=== PATIENT | male | born 1945 | race Caucasian/White ===

== ENCOUNTER 2016-10-14 10:21 | Inpatient (IN) | payer MEDICARE, OTHER ==
[2016-10-14 11:05] LABS: BASOPHIL 0.8 % (0-2); EOSINOPHIL 0.1 % (0-7); HCT 40.4 % (42.0-52.0); HGB 13.3 g/dl (13.2-18.0); MCH 30.2 pg (25.0-31.0); MCHC 32.9 g/dL (32.0-36.0); MCV 91.8 fL (78.0-100.0); MONOCYTE 7.3 % (0-12); MPV 9.2 fL (6.0-9.5); NEUTROPHIL 87.8 % (41-80); PLT 407 K/uL (150-400); RDW 12.7 % (11.5-14.0)
[2016-10-14 11:10] LABS: WBC 17.3 K/uL (4.0-10.5)
[2016-10-14 11:15] LABS: ALBUMIN 3.6 g/dL (3.4-4.8); BILIRUBIN - TOTAL 0.5 mg/dL (0.1-1.0); CREATININE 0.8 mg/dL (0.7-1.2); POTASSIUM 4.4 mmol/L (3.5-5.1); TOTAL PROTEIN 7.6 g/dL (6.4-8.3)
[2016-10-14 11:36] LABS: BILIRUBIN NEGATIVE (NEGATIVE); BLOOD TRACE-INTACT Ery/uL (NEGATIVE); CLARITY HAZY (CLEAR); COLOR YELLOW (YELLOW); GLUCOSE (U) 3+ mg/dL (NORMAL); KETONE (U) 1+ (SMALL) mg/dL (NEGATIVE); LEUKOCYTES NEGATIVE Leu/uL (NEGATIVE); NITRITE NEGATIVE (NEGATIVE); PROTEIN 2+ mg/dL (NEGATIVE)
[2016-10-14 11:37] LABS: URINARY WBC RARE
[2016-10-14 12:58] LABS: LACTIC ACID 3.9 mmol/L (0.5-2.2)
[2016-10-14 13:45] LABS: INR 5.89 (0.9-1.2); PROTHROMBIN TIME 51.7 SECONDS (11.7-14.0)
[2016-10-14 13:46] LABS: PTT 83.6 SECONDS (23.2-31.4)
[2016-10-14 15:51] LABS: BILIRUBIN NEGATIVE (NEGATIVE); BLOOD 2+ Ery/uL (NEGATIVE); CLARITY CLEAR (CLEAR); COLOR YELLOW (YELLOW); GLUCOSE (U) 3+ mg/dL (NORMAL); KETONE (U) 3+ (LARGE) mg/dL (NEGATIVE); LEUKOCYTES NEGATIVE Leu/uL (NEGATIVE); NITRITE NEGATIVE (NEGATIVE); PROTEIN 1+ mg/dL (NEGATIVE); UROBILINOGEN 0.2 mg/dL (0.2-1.0); pH 5.5 (5.0-9.0)
[2016-10-14 15:52] LABS: URINARY WBC RARE
[2016-10-15 07:55] LABS: HCT 33.8 % (42.0-52.0); HGB 11.2 g/dl (13.2-18.0); MCH 30.4 pg (25.0-31.0); MCHC 33.1 g/dL (32.0-36.0); MCV 91.6 fL (78.0-100.0); MPV 8.8 fL (6.0-9.5); RBC 3.69 M/uL (4.70-6.00); RDW 13.1 % (11.5-14.0); WBC 17.5 K/uL (4.0-10.5)
[2016-10-15 08:13] LABS: CREATININE 0.6 mg/dL (0.7-1.2); POTASSIUM 3.4 mmol/L (3.5-5.1)
[2016-10-15 08:15] LABS: CKMB 4.74 ng/mL (0.97-4.94)
[2016-10-15 08:25] LABS: PROTHROMBIN TIME 66.6 SECONDS (11.7-14.0)
[2016-10-15 08:26] LABS: INR 8.12 (0.9-1.2)
[2016-10-15 08:35] LABS: TROPONIN T 0.151 ng/mL
[2016-10-16 04:14] LABS: HCT 34.7 % (42.0-52.0); HGB 11.2 g/dl (13.2-18.0); MCH 30.1 pg (25.0-31.0); MCHC 32.3 g/dL (32.0-36.0); MCV 93.3 fL (78.0-100.0); RBC 3.72 M/uL (4.70-6.00); RDW 13.4 % (11.5-14.0); WBC 16.5 K/uL (4.0-10.5)
[2016-10-16 05:32] LABS: ALBUMIN 2.8 g/dL (3.4-4.8); BILIRUBIN - TOTAL 0.3 mg/dL (0.1-1.0); CREATININE 0.6 mg/dL (0.7-1.2); GLOBULIN (CALCULATION) 2.6 g/dL (2.2-4.2); POTASSIUM 3.4 mmol/L (3.5-5.1); TOTAL PROTEIN 5.4 g/dL (6.4-8.3)
[2016-10-16 11:36] LABS: INR 1.86 (0.9-1.2); PROTHROMBIN TIME 20.9 SECONDS (11.7-14.0)
[2016-10-16 11:49] LABS: CKMB 2.79 ng/mL (0.97-4.94); TROPONIN T 0.089 ng/mL
[2016-10-17 04:03] LABS: HCT 32.9 % (42.0-52.0); HGB 10.5 g/dl (13.2-18.0); MCH 29.9 pg (25.0-31.0); MCHC 31.9 g/dL (32.0-36.0); MCV 93.7 fL (78.0-100.0); MPV 8.8 fL (6.0-9.5); RBC 3.51 M/uL (4.70-6.00); RDW 13.4 % (11.5-14.0); WBC 16.3 K/uL (4.0-10.5)
[2016-10-17 04:11] LABS: INR 1.46 (0.9-1.2); PROTHROMBIN TIME 17.2 SECONDS (11.7-14.0)
[2016-10-17 04:22] LABS: CREATININE 0.7 mg/dL (0.7-1.2); MAGNESIUM 1.56 mg/dL (1.40-2.10)
[2016-10-18 04:52] LABS: HCT 32.4 % (42.0-52.0); HGB 10.6 g/dl (13.2-18.0); MCH 30.5 pg (25.0-31.0); MCHC 32.7 g/dL (32.0-36.0); MCV 93.1 fL (78.0-100.0); MPV 8.7 fL (6.0-9.5); RBC 3.48 M/uL (4.70-6.00); RDW 13.2 % (11.5-14.0); WBC 16.3 K/uL (4.0-10.5)
[2016-10-18 05:14] LABS: ALBUMIN 2.4 g/dL (3.4-4.8); BILIRUBIN - TOTAL 0.4 mg/dL (0.1-1.0); CREATININE 0.6 mg/dL (0.7-1.2); GLOBULIN (CALCULATION) 2.8 g/dL (2.2-4.2); MAGNESIUM 1.62 mg/dL (1.40-2.10); POTASSIUM 3.6 mmol/L (3.5-5.1); TOTAL PROTEIN 5.2 g/dL (6.4-8.3)
--- NOTE | 2016-10-18 13:15 | NUR ---
IN TO ROOM TO RE APPLY MONITOR;PT CLAMY;SWEATING;RECTAL TEMP TAKEN AT THIS TIME;100.8;BLANKETS REMOVED;ROOM TEMP DECREASED;WILL CONT. TO [place].
--- NOTE | 2016-10-18 14:35 | NUR ---
DR. KENNEDY HERE IN UNIT;NOTIFIED PER PHARMACY REQUEST OF PT/INR 10/17/16 OF 1.46/17.2, PT RECEIVING COUMADIN, 6MG, PO DAILY. NO NEW ORDERS AT THIS TIME. HE WAS ALSO NOTIFIED PT'S FAMILY REQUEST TO SPEAK WITH HIM IN REGARDS TO CT SCAN. UNABLE TO SEE AT THIS TIME D/T BEING CALLED AWAY TO SEE A PATIENT. FAMILY NOTIFIED.
--- NOTE | 2016-10-18 15:15 | NUR ---
PT'S DAUGHTER ASKED IF MD WAS RETURNING TO SPEAK W/IN REGARDS TO CT SCAN. THEY WERE NOTIFIED, HE WAS CALLED AWAY TO SEE ANOTHER PATIENT. PT'S DAUGHTER STATED SHE WOULD LIKE TO TAKE "MOTHER HOME" D/T BEING "EXHAUSTED", BUT SHE WAS WAITING FOR RESULTS. DR KENNEDY PAGED AND NOTIFIED OF REQUEST.
[2016-10-19 04:13] LABS: HCT 27.7 % (42.0-52.0); HGB 8.8 g/dl (13.2-18.0); MCH 29.9 pg (25.0-31.0); MCHC 31.8 g/dL (32.0-36.0); MCV 94.2 fL (78.0-100.0); RBC 2.94 M/uL (4.70-6.00); RDW 13.3 % (11.5-14.0); WBC 16.6 K/uL (4.0-10.5)
[2016-10-19 04:19] LABS: INR 2.65 (0.9-1.2); PROTHROMBIN TIME 27.6 SECONDS (11.7-14.0)
[2016-10-19 04:28] LABS: CREATININE 0.6 mg/dL (0.7-1.2); POTASSIUM 3.8 mmol/L (3.5-5.1)
--- NOTE | 2016-10-19 16:34 | NUR ---
10/19/2016 1630 - AFTER EXPLAINING PROCEDURE AND DISCUSSING THE INTERVENTION, A DOBHOFF FEEDING TUBE WAS PLACED AND ADVANCED TO 61 CM WITH TAPE TO CONFIRM LENGTH OF INSERTION. 10 ML OF AIR WAS INSUFFULATED TO CONFIRM PLACEMENT AND KUB WAS ORDERED TO CONFIRM. STYLET REMAINS UNTIL CONFIRMATION. PATIENT TOLERATED PROCEDURE WELL WITH ONLY A SINGLE COUGH DURING PLACEMENT. THE ORAL CAVITY WAS VISUALLIZED TO ENSURE THAT THE TUBE DID NOT COIL. LEFT NARE NG TUBE PLACED AND AWAITING X-RAY CONFIRMATION. PRIMARY RN SIGRID AND YOMAIRA GIVEN REPORT OF INTERVENTION.
[2016-10-20 04:40] LABS: HCT 31.5 % (42.0-52.0); HGB 10.1 g/dl (13.2-18.0); MCH 29.7 pg (25.0-31.0); MCHC 32.1 g/dL (32.0-36.0); MCV 92.6 fL (78.0-100.0); MPV 8.7 fL (6.0-9.5); RBC 3.4 M/uL (4.70-6.00); RDW 13.3 % (11.5-14.0); WBC 14.1 K/uL (4.0-10.5)
[2016-10-20 04:53] LABS: ALBUMIN 2.4 g/dL (3.4-4.8); BILIRUBIN - TOTAL 0.4 mg/dL (0.1-1.0); CREATININE 0.6 mg/dL (0.7-1.2); GLOBULIN (CALCULATION) 2.8 g/dL (2.2-4.2); POTASSIUM 3.5 mmol/L (3.5-5.1); TOTAL PROTEIN 5.2 g/dL (6.4-8.3)
[2016-10-20 05:11] LABS: PROTHROMBIN TIME 45.7 SECONDS (11.7-14.0)
[2016-10-20 05:12] LABS: INR 5.04 (0.9-1.2)
[2016-10-21 05:00] LABS: HCT 33.5 % (42.0-52.0); MCH 30.1 pg (25.0-31.0); MCHC 32.8 g/dL (32.0-36.0); MCV 91.5 fL (78.0-100.0); RBC 3.66 M/uL (4.70-6.00); RDW 13.4 % (11.5-14.0); WBC 12.2 K/uL (4.0-10.5)
[2016-10-21 05:20] LABS: ALBUMIN 2.1 g/dL (3.4-4.8); BILIRUBIN - TOTAL 0.4 mg/dL (0.1-1.0); CREATININE 0.6 mg/dL (0.7-1.2); GLOBULIN (CALCULATION) 3.6 g/dL (2.2-4.2); POTASSIUM 3.6 mmol/L (3.5-5.1); TOTAL PROTEIN 5.7 g/dL (6.4-8.3)
[2016-10-21 05:21] LABS: INR 4.12 (0.9-1.2)
[2016-10-22 07:50] LABS: HCT 32.4 % (42.0-52.0); HGB 10.5 g/dl (13.2-18.0); MCH 30.1 pg (25.0-31.0); MCHC 32.4 g/dL (32.0-36.0); MCV 92.8 fL (78.0-100.0); MPV 9.4 fL (6.0-9.5); RBC 3.49 M/uL (4.70-6.00); RDW 13.6 % (11.5-14.0); WBC 12.3 K/uL (4.0-10.5)
[2016-10-22 07:59] LABS: INR 2.68 (0.9-1.2); PROTHROMBIN TIME 27.8 SECONDS (11.7-14.0)
[2016-10-22 08:11] LABS: CREATININE 0.6 mg/dL (0.7-1.2); POTASSIUM 5.2 mmol/L (3.5-5.1)
[2016-10-23 04:58] LABS: HCT 32.5 % (42.0-52.0); HGB 10.7 g/dl (13.2-18.0); MCH 30.1 pg (25.0-31.0); MCHC 32.9 g/dL (32.0-36.0); MCV 91.3 fL (78.0-100.0); MPV 9.3 fL (6.0-9.5); RBC 3.56 M/uL (4.70-6.00); RDW 13.4 % (11.5-14.0); WBC 12.9 K/uL (4.0-10.5)
[2016-10-23 05:09] LABS: INR 1.79 (0.9-1.2); PROTHROMBIN TIME 20.2 SECONDS (11.7-14.0); PTT 38.8 SECONDS (23.2-31.4)
[2016-10-23 05:20] LABS: CREATININE 0.6 mg/dL (0.7-1.2); MAGNESIUM 1.87 mg/dL (1.40-2.10); POTASSIUM 4.5 mmol/L (3.5-5.1)
--- NOTE | 2016-10-23 13:11 | NUR ---
10/23/16 1100 PICC LINE PROCEDURE EXPLAINED TO PATIENT, SPOUSE, AND DAUGHTER. PT DRAPED IN STERILE FASHION. BASILIC VEIN VISUALIZED USING SITE RITE 6 ULTRA SOUND MACHINE. LEFT UPPER ARM SKIN AREA NUMBED WITH 1% LIDOCAINE AFTER SKIN WAS CLEANSED WITH CHLORAPREP. 21 GA NEEDLE INSERTED IN LEFT UPPER ARM X 2 STICK, GUIDED EASILY. #5 FR DOUBLE LUMEN PICC TRIMMED AT 48 CM, INSERTION SITE 0 CM, 27 CM BICEP. GOOD BLOOD RETURN NOTED. PICC DRESSING APPLIED, STAT CHEST XRAY OBTAINED. RADIOLOGIST CONFIRMED PLACEMENT TO SVC. PATIENT TOLERATED IT WELL. REPORT TO CARRI JANSEN R.N. BERE/SURG NURSE.
[2016-10-24 05:41] LABS: HCT 28.7 % (42.0-52.0); HGB 9.4 g/dl (13.2-18.0); MCH 29.6 pg (25.0-31.0); MCHC 32.8 g/dL (32.0-36.0); MCV 90.3 fL (78.0-100.0); MPV 9.3 fL (6.0-9.5); RBC 3.18 M/uL (4.70-6.00); RDW 13.7 % (11.5-14.0); WBC 9.9 K/uL (4.0-10.5)
[2016-10-24 05:53] LABS: INR 1.37 (0.9-1.2); PROTHROMBIN TIME 16.4 SECONDS (11.7-14.0); PTT 27.7 SECONDS (23.2-31.4)
[2016-10-24 07:35] LABS: CREATININE 0.7 mg/dL (0.7-1.2); POTASSIUM 3.7 mmol/L (3.5-5.1)
[2016-10-25 03:43] LABS: HCT 28.1 % (42.0-52.0); HGB 9.3 g/dl (13.2-18.0); MCH 30.1 pg (25.0-31.0); MCHC 33.1 g/dL (32.0-36.0); MCV 90.9 fL (78.0-100.0); MPV 9.1 fL (6.0-9.5); RBC 3.09 M/uL (4.70-6.00); RDW 13.9 % (11.5-14.0); WBC 9.8 K/uL (4.0-10.5)
[2016-10-25 04:03] LABS: INR 1.5 (0.9-1.2); PROTHROMBIN TIME 17.6 SECONDS (11.7-14.0)
[2016-10-25 04:16] LABS: CREATININE 0.7 mg/dL (0.7-1.2); POTASSIUM 4.3 mmol/L (3.5-5.1)
[2016-10-26 04:02] LABS: HCT 29.1 % (42.0-52.0); HGB 9.5 g/dl (13.2-18.0); MCH 29.8 pg (25.0-31.0); MCHC 32.6 g/dL (32.0-36.0); MCV 91.2 fL (78.0-100.0); MPV 9.1 fL (6.0-9.5); RBC 3.19 M/uL (4.70-6.00); RDW 14.2 % (11.5-14.0); WBC 8.3 K/uL (4.0-10.5)
[2016-10-26 04:12] LABS: INR 1.35 (0.9-1.2); PROTHROMBIN TIME 16.2 SECONDS (11.7-14.0)
[2016-10-26 04:22] LABS: ALBUMIN 2.4 g/dL (3.4-4.8); BILIRUBIN - TOTAL 0.2 mg/dL (0.1-1.0); CREATININE 0.7 mg/dL (0.7-1.2); GLOBULIN (CALCULATION) 3.2 g/dL (2.2-4.2); MAGNESIUM 1.92 mg/dL (1.40-2.10); POTASSIUM 4.6 mmol/L (3.5-5.1); TOTAL PROTEIN 5.6 g/dL (6.4-8.3)
[2016-10-26] MEDS ORDERED: VENTOLIN (2.5 MG/3 M INH (14:56)
[2016-10-26] MEDS ORDERED: LIPITOR20 MG PO (14:56)
[2016-10-26] MEDS ORDERED: BACLOFEN 10MG T10 MG PO (14:57)
[2016-10-26] MEDS ORDERED: ASPIRIN CHEWABL81 MG PO (14:57)
[2016-10-26] MEDS ORDERED: ELAVIL10 MG PO (15:00)
[2016-10-26] MEDS ORDERED: VITAMIN B-121000 MC1 PO (15:00)
[2016-10-26] MEDS ORDERED: DRISDOL50000 UNIT PO (15:01)
[2016-10-26] MEDS ORDERED: DIGITEK125 MCG PO (15:01)
[2016-10-26] MEDS ORDERED: AKWA TEARS15 ML OU (15:02)
[2016-10-26] MEDS ORDERED: XALATAN2.5 ML OU (15:03)
[2016-10-26] MEDS ORDERED: GLUCOTROL10 MG PO (15:03)
[2016-10-26] MEDS ORDERED: TOPROL XL 50 MG50 MG PO (15:04)
[2016-10-26] MEDS ORDERED: COUMADIN6 MG PO (15:05)
[2016-10-26] MEDS ORDERED: LOVENOX80 MG/0.1 SQ (15:05)
[2016-10-26] MEDS ORDERED: NORVASC5 MG PO (15:06)
[2016-10-26] MEDS ORDERED: METFORMIN HCL500 MG PO (15:06)
== END 2016-10-26 16:59 | disposition home health service (06) | DRG 871 ==
LOC: FER 10:21 → FMS 13:58 → FICU 13:58 → FTCU 10-16 14:00 → FMS 10-22 18:30
PROVIDERS: Emergency Medicine; Internal Medicine Nephrology; Surgery; ADMIT Internal Medicine Cardiovascular Disease
PROC: 02HV33Z Insertion of Infusion Device into Superior Vena Cava, Percutaneous Approach (ICD-10-PCS; 2016-10-23)
PROC: 0DH63UZ Insertion of Feeding Device into Stomach, Percutaneous Approach (ICD-10-PCS; principal; 2016-10-24 11:45)
DX: A41.9 Sepsis, unspecified organism (principal); J69.0 Pneumonitis due to inhalation of food and vomit; J96.01 Acute respiratory failure with hypoxia; I69.351 Hemiplegia and hemiparesis following cerebral infarction affecting right dominant side; R13.10 Dysphagia, unspecified; J44.0 Chronic obstructive pulmonary disease with (acute) lower respiratory infection; I48.0 Paroxysmal atrial fibrillation; I50.9 Heart failure, unspecified; I11.0 Hypertensive heart disease with heart failure; Z66 Do not resuscitate; Z79.01 Long term (current) use of anticoagulants; E11.9 Type 2 diabetes mellitus without complications; I25.10 Atherosclerotic heart disease of native coronary artery without angina pectoris; Z95.5 Presence of coronary angioplasty implant and graft; E78.5 Hyperlipidemia, unspecified; Z87.891 Personal history of nicotine dependence; Z74.01 Bed confinement status; Z79.899 Other long term (current) drug therapy; R63.3 Feeding difficulties
CPT/HCPCS: 36415; 36600; 71010; 71250; 74000; 80048; 80053; 80162; 81001; 82550; 82553; 82803; 82962; 83605; 83735; 83880; 84100; 84484; 85025; 85610; 85730; 87040; 87045; 87046; 87088; 87493; 92507; 92526; 92611; 93005; 94640; 94760; 94762; C1751; J1885; J1956; J2270; J2543; J3475

== ENCOUNTER 2016-11-07 15:05 | Emergency (ER) | payer MEDICARE, OTHER ==
[~2016-11-07 15:05] MED LIST: AKWA TEARS15 ML OU; ASPIRIN CHEWABL81 MG PO; BACLOFEN 10MG T10 MG PO; COUMADIN6 MG PO; DIGITEK125 MCG PO; DRISDOL50000 UNIT PO; ELAVIL10 MG PO; GLUCOTROL10 MG PO; LIPITOR20 MG PO; LOVENOX80 MG/0.1 SQ; METFORMIN HCL500 MG PO; NORVASC5 MG PO; TOPROL XL 50 MG50 MG PO; VENTOLIN (2.5 MG/3 M INH; VITAMIN B-121000 MC1 PO; XALATAN2.5 ML OU
[2016-11-07 16:33] LABS: BASOPHIL 0.4 % (0-2); EOSINOPHIL 3.7 % (0-7); HCT 36.1 % (42.0-52.0); HGB 11.7 g/dl (13.2-18.0); LYMPHOCYTE 8.2 % (15-48); MCH 30.2 pg (25.0-31.0); MCHC 32.4 g/dL (32.0-36.0); MONOCYTE 9.6 % (0-12); NEUTROPHIL 78.1 % (41-80); PLT 222 K/uL (150-400); RBC 3.88 M/uL (4.70-6.00); RDW 14.2 % (11.5-14.0); WBC 11.9 K/uL (4.0-10.5)
[2016-11-07 16:54] LABS: ALBUMIN 3.2 g/dL (3.4-4.8); BILIRUBIN - TOTAL 0.4 mg/dL (0.1-1.0); CREATININE 0.4 mg/dL (0.7-1.2); GLOBULIN (CALCULATION) 3.2 g/dL (2.2-4.2); LACTIC ACID 0.9 mmol/L (0.5-2.2); POTASSIUM 4.4 mmol/L (3.5-5.1); TOTAL PROTEIN 6.4 g/dL (6.4-8.3)
== END 2016-11-07 20:15 | disposition home or self-care (01) ==
LOC: FER 15:05
PROVIDERS: Internal Medicine
DX: J20.9 Acute bronchitis, unspecified (principal); I11.0 Hypertensive heart disease with heart failure; I50.9 Heart failure, unspecified; I48.91 Unspecified atrial fibrillation; E11.9 Type 2 diabetes mellitus without complications; E78.5 Hyperlipidemia, unspecified; Z86.73 Personal history of transient ischemic attack (TIA), and cerebral infarction without residual deficits; Z79.01 Long term (current) use of anticoagulants; Z79.84 Long term (current) use of oral hypoglycemic drugs; Z79.51 Long term (current) use of inhaled steroids; Z79.899 Other long term (current) drug therapy; Z99.81 Dependence on supplemental oxygen; Z93.1 Gastrostomy status; Z95.1 Presence of aortocoronary bypass graft; Z90.49 Acquired absence of other specified parts of digestive tract
CPT/HCPCS: 36415; 36600; 71010; 80053; 82803; 83605; 84484; 85025; 87040; 93005; 94640; J2543

== ENCOUNTER 2021-05-20 17:01 | Inpatient (IN) | payer MEDICARE, OTHER ==
[~2021-05-20] VITALS: Ht 188 cm; Wt 67.6 kg
[~2021-05-20 17:01] MED LIST changes: +CETIRIZINE HCL5 M1 PO; +CRESTOR20 MG PO; +KEFLEX250 MG PO; +XARELTO10 MG PO
[2021-05-20 17:26] LABS: BASOPHIL 0.3 % (0-2); EOSINOPHIL 0.4 % (0-7); HGB 12.8 g/dl (13.2-18.0); LYMPHOCYTE 7.5 % (15-48); MCH 31.5 pg (25.0-31.0); MCHC 32.8 g/dL (32.0-36.0); MCV 96.1 fL (78.0-100.0); MONOCYTE 8.3 % (0-12); MPV 9.9 fL (6.0-9.5); NEUTROPHIL 83.1 % (41-80); NRBC 0; PLT 209 K/uL (150-400); RBC 4.06 M/uL (4.70-6.00); RDW 13.2 % (11.5-14.0); WBC 13.5 K/uL (4.0-10.5)
[2021-05-20 18:04] LABS: BILIRUBIN - TOTAL 0.6 mg/dL (0.2-1.0); BUN/CREAT RATIO (CALC) 24.4 RATIO; CREATININE 0.78 mg/dL (0.67-1.17); GLOBULIN (CALCULATION) 3.7 g/dL; TOTAL PROTEIN 7.7 g/dL (6.4-8.2)
[2021-05-20 18:11] LABS: LACTIC ACID 2.7 mmol/L (0.4-1.9)
[2021-05-20 20:34] LABS: CORONAVIRUS 2019 SARS-COV-2 NEGATIVE (NEGATIVE); INFLUENZA A NAA NEGATIVE (NEGATIVE)
[2021-05-21 22:14] LABS: BASOPHIL 0.1 % (0-2); EOSINOPHIL 0 % (0-7); HCT 41.4 % (42.0-52.0); HGB 13.5 g/dl (13.2-18.0); LYMPHOCYTE 5.6 % (15-48); MCH 31.3 pg (25.0-31.0); MCHC 32.6 g/dL (32.0-36.0); MCV 96.1 fL (78.0-100.0); MONOCYTE 10.2 % (0-12); MPV 9.8 fL (6.0-9.5); NEUTROPHIL 83.8 % (41-80); NRBC 0; PLT 275 K/uL (150-400); RBC 4.31 M/uL (4.70-6.00); WBC 11.3 K/uL (4.0-10.5)
[2021-05-22 05:02] LABS: BILIRUBIN 1+ mg/dL (NEGATIVE); BLOOD 3+ Ery/uL (NEGATIVE); CLARITY CLEAR (CLEAR); COLOR YELLOW (YELLOW); GLUCOSE (U) 2+ mg/dL (NORMAL); LEUKOCYTES NEGATIVE Leu/uL (NEGATIVE); NITRITE NEGATIVE (NEGATIVE); PROTEIN 2+ mg/dL (NEGATIVE); SPECIFIC GRAVITY 1.025 (1.001-1.030); UROBILINOGEN 0.2 mg/dL (0.2-1.0)
[2021-05-22 05:07] LABS: BACTERIA 3+; MUCOUS MODERATE; URINARY RBC TNTC
[2021-05-22 06:31] LABS: BASOPHIL 0.2 % (0-2); EOSINOPHIL 0 % (0-7); HCT 39.1 % (42.0-52.0); HGB 12.8 g/dl (13.2-18.0); MCH 31.6 pg (25.0-31.0); MCHC 32.7 g/dL (32.0-36.0); MCV 96.5 fL (78.0-100.0); MONOCYTE 10.8 % (0-12); MPV 9.6 fL (6.0-9.5); NEUTROPHIL 82.6 % (41-80); NRBC 0; PLT 281 K/uL (150-400); RBC 4.05 M/uL (4.70-6.00); RDW 13.1 % (11.5-14.0); WBC 11.3 K/uL (4.0-10.5)
[2021-05-22 06:56] LABS: ALBUMIN 3.5 g/dL (3.4-5.0); BILIRUBIN - TOTAL 0.3 mg/dL (0.2-1.0); BUN/CREAT RATIO (CALC) 46.8 RATIO; CREATININE 0.79 mg/dL (0.67-1.17); GLOBULIN (CALCULATION) 4.5 g/dL; POTASSIUM 4.4 mmol/L (3.5-5.1)
[2021-05-23 06:49] LABS: HCT 38.6 % (42.0-52.0); HGB 12.4 g/dl (13.2-18.0); MCH 31.5 pg (25.0-31.0); MCHC 32.1 g/dL (32.0-36.0); MPV 9.2 fL (6.0-9.5); RBC 3.94 M/uL (4.70-6.00); RDW 12.9 % (11.5-14.0); WBC 10.6 K/uL (4.0-10.5)
[2021-05-23 07:15] LABS: BUN/CREAT RATIO (CALC) 36.1 RATIO; CREATININE 0.72 mg/dL (0.67-1.17); POTASSIUM 3.9 mmol/L (3.5-5.1)
[2021-05-24 07:11] LABS: BASOPHIL 0.5 % (0-2); EOSINOPHIL 3.7 % (0-7); HCT 40.8 % (42.0-52.0); HGB 13.4 g/dl (13.2-18.0); LYMPHOCYTE 11.3 % (15-48); MCH 31.7 pg (25.0-31.0); MCHC 32.8 g/dL (32.0-36.0); MCV 96.5 fL (78.0-100.0); MONOCYTE 7.5 % (0-12); MPV 9.3 fL (6.0-9.5); NRBC 0; PLT 200 K/uL (150-400); RBC 4.23 M/uL (4.70-6.00); RDW 12.8 % (11.5-14.0); WBC 10.7 K/uL (4.0-10.5)
--- NOTE | 2021-05-24 19:53 | NUR ---
PATIENT RANDOM VANC TROUGH 40.1. THIS RN CALLED PHARMACY TO CHECK IF OK TO GIVE VANC 750MG AT 0100. PER PHARMACY, LAB WAS DRAWN WHILE VANC WAS INFUSING ON DAYSHIFT. DICK FROM PHARMACY SAID NEW TROUGH IS SCHEDULED, AND TO GO AHEAD AND GIVE THE VANC 750MG AT 0100.
--- NOTE | 2021-05-25 14:53 | NUR ---
MET WITH PT. AND SPOUSE. SPOUSE ADVISED THAT THEY ARE CURRENT WITH [facility]. HE HAS A ROLLING WALKER. PT. WILL NEED O2. ADVISED THAT SHE WANTS PT TRANSPORTED HOME BY [facility]. FAXED CLINICALS TO [facility] AT [facility] TO CONTACT SPOUSE FOR DELIVERY OF O2 CONCENTRATOR.
[2021-05-26] MEDS ORDERED: VENTOLIN (2.5 MG/3 M INH (11:44)
== END 2021-05-26 16:30 | disposition home health service (06) | DRG 202 ==
LOC: FER 17:01 → FMS 05-21 21:28
PROVIDERS: Emergency Medicine; Hospitalist; Internal Medicine; Nurse Practitioner; ADMIT Internal Medicine
DX: J40 Bronchitis, not specified as acute or chronic (principal); I21.A1 Myocardial infarction type 2; C34.11 Malignant neoplasm of upper lobe, right bronchus or lung; I69.351 Hemiplegia and hemiparesis following cerebral infarction affecting right dominant side; R78.81 Bacteremia; B37.49 Other urogenital candidiasis; Z20.822 Contact with and (suspected) exposure to COVID-19; R11.10 Vomiting, unspecified; R09.02 Hypoxemia; E78.5 Hyperlipidemia, unspecified; I10 Essential (primary) hypertension; E11.9 Type 2 diabetes mellitus without complications; I25.10 Atherosclerotic heart disease of native coronary artery without angina pectoris; J43.9 Emphysema, unspecified; I48.0 Paroxysmal atrial fibrillation; L89.321 Pressure ulcer of left buttock, stage 1; L89.311 Pressure ulcer of right buttock, stage 1; I69.320 Aphasia following cerebral infarction; Z95.5 Presence of coronary angioplasty implant and graft; I25.2 Old myocardial infarction; Z79.01 Long term (current) use of anticoagulants; Z90.49 Acquired absence of other specified parts of digestive tract; Z87.891 Personal history of nicotine dependence; Z79.84 Long term (current) use of oral hypoglycemic drugs; Z79.899 Other long term (current) drug therapy
CPT/HCPCS: 36415; 70450; 71045; 71275; 80048; 80053; 80202; 81001; 82550; 82962; 83605; 83880; 84145; 84484; 85025; 85379; 87040; 87077; 87186; 87324; 87449; 87493; 93005; 94010; 94668; 97162; 97166; 97530-GP; 97535; J0456; J0696; J1450; J1940; J2405; J2543; J3370; J7050; Q9967; U0002

== ENCOUNTER 2021-11-01 01:28 | Inpatient (IN) | payer MEDICARE ==
[~2021-11-01] VITALS: Ht 160 cm; Wt 62.8 kg
[2021-11-01 02:14] LABS: BASOPHIL 0.8 % (0-2); EOSINOPHIL 3.5 % (0-7); HCT 36.2 % (42.0-52.0); HGB 11.2 g/dl (13.2-18.0); LYMPHOCYTE 9.6 % (15-48); MCH 29.9 pg (25.0-31.0); MCHC 30.9 g/dL (32.0-36.0); MCV 96.5 fL (78.0-100.0); MONOCYTE 8.3 % (0-12); MPV 9.4 fL (6.0-9.5); NEUTROPHIL 77.5 % (41-80); NRBC 0; PLT 213 K/uL (150-400); RBC 3.75 M/uL (4.70-6.00); RDW 14.6 % (11.5-14.0); WBC 9.9 K/uL (4.0-10.5)
[2021-11-01 02:17] LABS: BILIRUBIN NEGATIVE (NEGATIVE); BLOOD TRACE-INTACT Ery/uL (NEGATIVE); COLOR YELLOW (YELLOW); GLUCOSE (U) 1+ mg/dL (NORMAL); LEUKOCYTES NEGATIVE Leu/uL (NEGATIVE); NITRITE NEGATIVE (NEGATIVE); PROTEIN 1+ mg/dL (NEGATIVE); UROBILINOGEN 0.2 mg/dL (0.2-1.0)
[2021-11-01 02:22] LABS: CLARITY SLIGHTLY HAZY (CLEAR)
[2021-11-01 02:24] LABS: BACTERIA TRACE; URINARY WBC RARE
[2021-11-01 02:35] LABS: ALBUMIN 3.2 g/dL (3.4-5.0); BILIRUBIN - TOTAL 0.3 mg/dL (0.2-1.0); BUN/CREAT RATIO (CALC) 22.7 RATIO; CREATININE 1.28 mg/dL (0.67-1.17); GLOBULIN (CALCULATION) 4.8 g/dL; POTASSIUM 3.9 mmol/L (3.5-5.1)
[2021-11-01 02:37] LABS: LACTIC ACID 3.3 mmol/L (0.4-1.9)
[2021-11-01 03:05] LABS: CORONAVIRUS 2019 SARS-COV-2 NEGATIVE (NEGATIVE); INFLUENZA A NAA NEGATIVE (NEGATIVE)
[2021-11-01] MEDS ORDERED: CALMOSEPTINE OI71 GM TD (10:04)
[2021-11-01] MEDS ORDERED: VITAMIN D325 MC2 PO (10:06)
[2021-11-01] MEDS ORDERED: XALATAN2.5 ML OS (10:09)
[2021-11-01] MEDS ORDERED: NITROQUIK SL0.4 MG SL (10:11)
--- NOTE | 2021-11-01 16:47 | NUR ---
11/01/21 Mr. Perez lives at home with his spouse, son, and grandson. His spouse is undergoing chemo therapy. The social assessment was conducted with Ms. Perez via telephone. - Mr. Perez is a [place] (boots on the ground). He has [facility] program. A PHOTO MASK CLEANERJessica ) visits the home once a month. Other services are provided as needed. A social media intern visited last week. Mr. Perez also has a caregiver 3 times per week through [facility]. - He has ramps, hospital bed, wc, kingslee merchant, s. chair and 3in1. Ana Alston reports Mr. Perez to be dependent and to be confused at times.
[2021-11-03 07:47] LABS: BASOPHIL 0.8 % (0-2); EOSINOPHIL 6.6 % (0-7); HCT 32.8 % (42.0-52.0); HGB 10.7 g/dl (13.2-18.0); LYMPHOCYTE 10.9 % (15-48); MCH 30.5 pg (25.0-31.0); MCHC 32.6 g/dL (32.0-36.0); MCV 93.4 fL (78.0-100.0); MPV 9.1 fL (6.0-9.5); NRBC 0; PLT 201 K/uL (150-400); RBC 3.51 M/uL (4.70-6.00); RDW 14.3 % (11.5-14.0); WBC 7.6 K/uL (4.0-10.5)
[2021-11-03 08:04] LABS: BUN/CREAT RATIO (CALC) 15.9 RATIO; CREATININE 1.26 mg/dL (0.67-1.17); POTASSIUM 3.3 mmol/L (3.5-5.1)
--- NOTE | 2021-11-03 14:18 | NUR ---
11/03/21 Dr. Thurman reports family to have requested EMS for transport home. Ms. Perez reports to have spoken with Job Lynn at [facility] and was informed that the EMS cost would be covered by [facility]. Ms. Perez was educated to EMS ABN form that she would be required to sign. - Spouse reports patient to have home 02 for prn use.
[2021-11-04] MEDS ORDERED: AMOX TR-K CLV1 EAC4 PO (10:49)
== END 2021-11-04 11:29 | disposition home health service (06) | DRG 193 ==
LOC: FER 01:28 → FTCU 07:37
PROVIDERS: Internal Medicine; Nurse Practitioner Adult Health; ADMIT Internal Medicine
DX: J18.9 Pneumonia, unspecified organism (principal); J96.21 Acute and chronic respiratory failure with hypoxia; G93.41 Metabolic encephalopathy; N17.9 Acute kidney failure, unspecified; I69.351 Hemiplegia and hemiparesis following cerebral infarction affecting right dominant side; C34.11 Malignant neoplasm of upper lobe, right bronchus or lung; Z66 Do not resuscitate; Z20.822 Contact with and (suspected) exposure to COVID-19; I12.9 Hypertensive chronic kidney disease with stage 1 through stage 4 chronic kidney disease, or unspecified chronic kidney disease; E11.22 Type 2 diabetes mellitus with diabetic chronic kidney disease; N18.30 Chronic kidney disease, stage 3 unspecified; I48.0 Paroxysmal atrial fibrillation; I25.10 Atherosclerotic heart disease of native coronary artery without angina pectoris; L89.152 Pressure ulcer of sacral region, stage 2; E78.5 Hyperlipidemia, unspecified; F03.90 Unspecified dementia, unspecified severity, without behavioral disturbance, psychotic disturbance, mood disturbance, and anxiety; K59.00 Constipation, unspecified; I69.320 Aphasia following cerebral infarction; Z98.61 Coronary angioplasty status; Z90.49 Acquired absence of other specified parts of digestive tract; Z87.891 Personal history of nicotine dependence; Z79.01 Long term (current) use of anticoagulants; Z74.01 Bed confinement status; Z82.49 Family history of ischemic heart disease and other diseases of the circulatory system
CPT/HCPCS: 36415; 36600; 70450; 71250; 74230; 80048; 80053; 81001; 82803; 82962; 83605; 83690; 84145; 84484; 85025; 87040; 92611; 93005; 94640; J2543; J7030; U0002

== ENCOUNTER 2021-12-14 15:55 | Inpatient (IN) | payer MEDICARE ==
[~2021-12-14] VITALS: Ht 170.2 cm; Wt 63.1 kg
[~2021-12-14 15:55] MED LIST changes: +AMOX TR-K CLV1 EAC4 PO; +CALMOSEPTINE OI71 GM TD; +NITROQUIK SL0.4 MG SL; +VITAMIN D325 MC2 PO; +XALATAN2.5 ML OS
[2021-12-14 18:10] LABS: BASOPHIL 0.6 % (0-2); EOSINOPHIL 2.7 % (0-7); HCT 40.9 % (42.0-52.0); LYMPHOCYTE 7.2 % (15-48); MCHC 31.8 g/dL (32.0-36.0); MCV 94.5 fL (78.0-100.0); MONOCYTE 3.3 % (0-12); MPV 9.2 fL (6.0-9.5); NEUTROPHIL 85.9 % (41-80); NRBC 0; PLT 255 K/uL (150-400); RBC 4.33 M/uL (4.70-6.00); WBC 9.7 K/uL (4.0-10.5)
[2021-12-14 18:38] LABS: IRON % SATURATION 38.3 %SAT (20-50)
[2021-12-14 18:40] LABS: LACTIC ACID 3.8 mmol/L (0.4-1.9)
[2021-12-14 18:48] LABS: ALBUMIN 4.5 g/dL (3.4-5.0); BILIRUBIN - TOTAL 0.6 mg/dL (0.2-1.0); BUN/CREAT RATIO (CALC) 18.9 RATIO; CREATININE 1.32 mg/dL (0.67-1.17); FT4 (FREE T4) 4.6 ng/dL (0.76-1.46); MAGNESIUM 1.9 mg/dL (1.8-2.4); POTASSIUM 4.3 mmol/L (3.5-5.1); TOTAL PROTEIN 9.5 g/dL (6.4-8.2)
[2021-12-14 21:26] LABS: CORONAVIRUS 2019 SARS-COV-2 NEGATIVE (NEGATIVE); INFLUENZA A NAA NEGATIVE (NEGATIVE)
[2021-12-15 06:31] LABS: BASOPHIL 0.4 % (0-2); EOSINOPHIL 0.2 % (0-7); HCT 31.4 % (42.0-52.0); HGB 10.1 g/dl (13.2-18.0); LYMPHOCYTE 2.3 % (15-48); MCH 30.7 pg (25.0-31.0); MCHC 32.2 g/dL (32.0-36.0); MCV 95.4 fL (78.0-100.0); MONOCYTE 3.8 % (0-12); MPV 9.6 fL (6.0-9.5); NEUTROPHIL 92.8 % (41-80); NRBC 0; PLT 182 K/uL (150-400); RBC 3.29 M/uL (4.70-6.00); RDW 15.1 % (11.5-14.0); WBC 16.1 K/uL (4.0-10.5)
[2021-12-15 07:12] LABS: ALBUMIN 3.1 g/dL (3.4-5.0); BILIRUBIN - TOTAL 0.4 mg/dL (0.2-1.0); BUN/CREAT RATIO (CALC) 21.2 RATIO; C-REACTIVE PROTEIN 2.9 mg/dL (<=0.90); CREATININE 1.37 mg/dL (0.67-1.17); GLOBULIN (CALCULATION) 3.8 g/dL; MAGNESIUM 1.6 mg/dL (1.8-2.4); PHOSPHORUS 2.3 mg/dL (2.6-4.7); POTASSIUM 4.3 mmol/L (3.5-5.1)
[2021-12-15 07:15] LABS: TOTAL PROTEIN 6.9 g/dL (6.4-8.2)
[2021-12-15 11:52] LABS: BILIRUBIN NEGATIVE (NEGATIVE); BLOOD 2+ Ery/uL (NEGATIVE); CLARITY CLEAR (CLEAR); COLOR YELLOW (YELLOW); GLUCOSE (U) 3+ mg/dL (NORMAL); LEUKOCYTES NEGATIVE Leu/uL (NEGATIVE); NITRITE NEGATIVE (NEGATIVE); PROTEIN 1+ mg/dL (NEGATIVE); UROBILINOGEN 0.2 mg/dL (0.2-1.0)
[2021-12-15 11:58] LABS: BACTERIA TRACE
[2021-12-15 11:59] LABS: AMORPHOUS URATES CRYSTALS TRACE
[2021-12-16 05:25] LABS: BASOPHIL 0.8 % (0-2); EOSINOPHIL 3.8 % (0-7); HCT 26.8 % (42.0-52.0); HGB 8.6 g/dl (13.2-18.0); LYMPHOCYTE 6.7 % (15-48); MCH 30.4 pg (25.0-31.0); MCHC 32.1 g/dL (32.0-36.0); MCV 94.7 fL (78.0-100.0); MONOCYTE 6.8 % (0-12); MPV 9.5 fL (6.0-9.5); NEUTROPHIL 81.6 % (41-80); NRBC 0; PLT 138 K/uL (150-400); RBC 2.83 M/uL (4.70-6.00); RDW 15.4 % (11.5-14.0); WBC 7.6 K/uL (4.0-10.5)
[2021-12-16 05:55] LABS: IRON % SATURATION 8.2 %SAT (20-50)
[2021-12-16 06:27] LABS: ALBUMIN 2.8 g/dL (3.4-5.0); BILIRUBIN - TOTAL 0.3 mg/dL (0.2-1.0); BUN/CREAT RATIO (CALC) 16.3 RATIO; CREATININE 1.29 mg/dL (0.67-1.17); FOLIC ACID (SERUM) 31.4 ng/mL (8.6-58.9); GLOBULIN (CALCULATION) 3.5 g/dL; POTASSIUM 3.6 mmol/L (3.5-5.1); TOTAL PROTEIN 6.3 g/dL (6.4-8.2)
[2021-12-17 05:24] LABS: BASOPHIL 0.6 % (0-2); EOSINOPHIL 3.2 % (0-7); HCT 28.5 % (42.0-52.0); HGB 9.5 g/dl (13.2-18.0); LYMPHOCYTE 4.1 % (15-48); MCH 31.3 pg (25.0-31.0); MCHC 33.3 g/dL (32.0-36.0); MCV 93.8 fL (78.0-100.0); MONOCYTE 6.2 % (0-12); MPV 9.5 fL (6.0-9.5); NEUTROPHIL 85.4 % (41-80); NRBC 0; PLT 170 K/uL (150-400); RBC 3.04 M/uL (4.70-6.00); RDW 14.9 % (11.5-14.0); WBC 10.8 K/uL (4.0-10.5)
[2021-12-17 05:46] LABS: BUN/CREAT RATIO (CALC) 16.3 RATIO; CREATININE 1.23 mg/dL (0.67-1.17); POTASSIUM 3.3 mmol/L (3.5-5.1)
[2021-12-18 05:36] LABS: BASOPHIL 0.8 % (0-2); EOSINOPHIL 6.4 % (0-7); HCT 25.1 % (42.0-52.0); HGB 8.4 g/dl (13.2-18.0); LYMPHOCYTE 9.9 % (15-48); MCH 30.9 pg (25.0-31.0); MCHC 33.5 g/dL (32.0-36.0); MCV 92.3 fL (78.0-100.0); MONOCYTE 8.3 % (0-12); MPV 9.2 fL (6.0-9.5); NEUTROPHIL 74.4 % (41-80); NRBC 0; PLT 140 K/uL (150-400); RBC 2.72 M/uL (4.70-6.00); RDW 14.8 % (11.5-14.0); WBC 6.3 K/uL (4.0-10.5)
[2021-12-18 06:02] LABS: ALBUMIN 2.7 g/dL (3.4-5.0); ALKALINE PHOSHATASE 63 U/L (46-116); ALT <6 U/L (16-63); AST 17 U/L (15-37); BILIRUBIN - TOTAL 0.4 mg/dL (0.2-1.0); BUN 16 mg/dL (7-18); BUN/CREAT RATIO (CALC) 12.3 RATIO; CHLORIDE 103 mmol/L (98-107); CO2 (BICARBONATE) 27 mmol/L (21-32); GLOBULIN (CALCULATION) 3.6 g/dL; GLUCOSE 210 mg/dL (74-106); POTASSIUM 2.6 mmol/L (3.5-5.1); TOTAL PROTEIN 6.3 g/dL (6.4-8.2)
[2021-12-18] MEDS ORDERED: AUGMENTIN 500-1 EACH PO (14:33)
[2021-12-18] MEDS ORDERED: VIBRAMYCIN100 MG PO (14:33)
[2021-12-18] MEDS ORDERED: DAILY PROBIOTI250 MG PO (14:33)
[2021-12-19 06:33] LABS: HCT 25.4 % (42.0-52.0); HGB 8.5 g/dl (13.2-18.0); MCH 31.1 pg (25.0-31.0); MCHC 33.5 g/dL (32.0-36.0); MPV 9.5 fL (6.0-9.5); RBC 2.73 M/uL (4.70-6.00); WBC 6.8 K/uL (4.0-10.5)
[2021-12-19 06:51] LABS: BUN/CREAT RATIO (CALC) 12.8 RATIO; CREATININE 1.33 mg/dL (0.67-1.17); POTASSIUM 3.5 mmol/L (3.5-5.1)
== END 2021-12-19 15:50 | disposition home or self-care (01) | DRG 193 ==
LOC: FER 15:55 → FMS 20:47
PROVIDERS: Emergency Medicine; Nurse Practitioner; ADMIT Family Medicine
PROC: 06HY33Z Insertion of Infusion Device into Lower Vein, Percutaneous Approach (ICD-10-PCS; principal; 2021-12-15)
DX: J18.9 Pneumonia, unspecified organism (principal); G93.41 Metabolic encephalopathy; J96.01 Acute respiratory failure with hypoxia; N17.9 Acute kidney failure, unspecified; I69.351 Hemiplegia and hemiparesis following cerebral infarction affecting right dominant side; Z20.822 Contact with and (suspected) exposure to COVID-19; Z66 Do not resuscitate; E78.5 Hyperlipidemia, unspecified; E11.649 Type 2 diabetes mellitus with hypoglycemia without coma; I11.0 Hypertensive heart disease with heart failure; I50.9 Heart failure, unspecified; I25.10 Atherosclerotic heart disease of native coronary artery without angina pectoris; I48.0 Paroxysmal atrial fibrillation; Y95 Nosocomial condition; M53.3 Sacrococcygeal disorders, not elsewhere classified; E87.6 Hypokalemia; I69.320 Aphasia following cerebral infarction; I69.391 Dysphagia following cerebral infarction; R13.10 Dysphagia, unspecified; Z79.84 Long term (current) use of oral hypoglycemic drugs; Z79.899 Other long term (current) drug therapy; Z79.01 Long term (current) use of anticoagulants; Z98.61 Coronary angioplasty status; Z90.49 Acquired absence of other specified parts of digestive tract; Z98.890 Other specified postprocedural states; Z87.891 Personal history of nicotine dependence; Z82.49 Family history of ischemic heart disease and other diseases of the circulatory system; Z93.1 Gastrostomy status
CPT/HCPCS: 36415; 70450; 71045; 74170; 80048; 80053; 80202; 81001; 82530; 82550; 82607; 82746; 83036; 83540; 83550; 83605; 83615; 83735; 83880; 84100; 84145; 84439; 84443; 84484; 85025; 86140; 94640; 94667; 94668; J0692; J1650; J2543; J3370; J3475; J7030; J7050; Q9967; U0002